=== PATIENT | female | born 1990 | race Caucasian/White ===

== ENCOUNTER 2017-04-29 15:44 | Emergency (ER) | payer MEDICAID, OTHER ==
[2017-04-29 16:51] VITALS: BMI 23.4
[2017-04-29 16:54] VITALS: BP 110/76; PULSE 68; RESP 16; TEMP 98.1; O2SAT 100
--- NOTE | 2017-04-29 18:06 | C.PDOC ---
History Of Present Illness 26 y/o female presents to the ER for evaluation of right ankle pain and swelling which developed on April 18, 2016 after the patient slipped and fell on ice sustaining an injury to the right ankle. Patient states that she has persistent pain since the time of the injury.Patient denies having any deformities and other complaints. 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 Musculoskeletal: Positive for: Other (right ankle pain) Neurological: Negative for: Weakness, Numbness Physical Exam - Physical Exam Appears: Well, Non-toxic, No Acute Distress Skin: Normal Color, Warm, Ecchymosis (TRACE OVER DORSAL ASEPCT RIGHT FOOT) Extremity: Normal ROM (mild discofort to Right ankle flexion/extension due to pain. No neurovascular deficits.), Tenderness (over lateral sapect Right ankle) , Capillary Refill (less than 2sec to Right foot), No Deformity, Swelling ( Right ankle lateral malleolus) Neurological/Psych: Oriented x3, Normal Speech, Normal Motor, Normal Sensation, Normal Reflexes ED Course And Treatment O2 Sat by Pulse Oximetry: 100 - Other Rad Right ankle X-Ray: Interpreted by Me, Viewed By Me Interpretation: (+) distal fibula fracture Progress Note: Podiatry resident was called for consult. Pt was seen by podiatry resident and cast applied. Crutches given. Pt was advised to F/u with Podiatry Clinic on Saturday 12P-3P for further F/U and tx. return ifa co new changes. Pt understand. Stable for discharge now. Orthopedic Time Performed: 17:30 Time Out: Side verified, Site verified, Patient ID confirmed Procedure: Splint Type: Posterior Location: Right, Foot Consent obtained: Verbal Performed by: Mid-level Provider Diagnosis: Fracture Type: Closed Location: Right, Distal Bone: Fibula Disposition Counseled Patient/Family Regarding: Diagnosis, Need For Followup, Rx Given - Disposition Referrals: Edgar Hernandez III, MD [Staff Provider] - [facility] [Outside] Podiatry Clinic [Outside] Disposition Time: 17:50 Condition: STABLE Additional Instructions: NONE-WEIGHT BEARING SPLINT UNTIL RE-EVALUATED BY ORTHOPEDIST/NUT SIFTER TAKE PAIN MEDICATION NEED FOLLOW UP WITH NUT SIFTER/ORTHOPEDIST AT [facility] ON SATURDAY/ 12P-3P FOR RE-EVALUATION. RETURN TO ED IF ANY WORSENING OR NEW CHANGES. Prescriptions: traMADol [Ultram] 50 mg PO TID #7 tab Instructions: Ankle Fracture (ED) Forms: [employer] (I[place]ic) - Clinical Impression Clinical Impression: Ankle fracture
--- NOTE | 2017-04-29 21:51 | CP.PCM.CON ---
History of Present Illness - History of Present Illness History of Present Illness: 25 year old female seen in ED complaining of right ankle pain. Patient states that on 04/18/17 she slipped on ice and twisted her ankle causing severe pain, swelling and bruising. Patient continued to walk on ankle with some pain and continued swelling and bruising until she finally decided to come in today for further evaluation. Patient denies any treatment for the ankle. Denies any further pedal complaints. SHe is AAO x 3 and NAD at time of visit. Denies recent N/V/F/C/CP/SOB/D/posterior calf pain when squeezed Review of Systems - Review of Systems Review of Systems: ROS as per HPI Past Patient History - Past Social History Smoking Status: Never Smoked - CARDIAC Hx Cardiac Disorders: No - PULMONARY Hx Respiratory Disorders: No - NEUROLOGICAL Hx Neurological Disorder: No - HEENT Hx HEENT Problems: No - RENAL Hx Pyelonephritis: Yes - ENDOCRINE/METABOLIC Hx Endocrine Disorders: No - HEMATOLOGICAL/ONCOLOGICAL Hx Blood Disorders: No - INTEGUMENTARY Hx Dermatological Problems: No - MUSCULOSKELETAL/RHEUMATOLOGICAL Hx Musculoskeletal Disorders: No Hx Falls: No - GASTROINTESTINAL Hx Gastrointestinal Disorders: No - GENITOURINARY/GYNECOLOGICAL Hx Genitourinary Disorders: No - PSYCHIATRIC Hx Substance Use: No - SURGICAL HISTORY Hx Surgeries: No - ANESTHESIA Hx Anesthesia: No Meds Home Medications: Home Medication List Medication Instructions Recorded Confirmed Type traMADol [Ultram] 50 mg PO TID #7 tab 04/29/17 Rx Allergies/Adverse Reactions: Allergies Allergy/AdvReac Type Severity Reaction Status Date / Time No Known Allergies Allergy Verified 04/29/17 16:50 Physical Exam - Constitutional Appears: Well, Non-toxic, No Acute Distress - Extremities Exam Additional comments: RLE focused exam: Vasc: DP/PT pulses fully palpable 2/4 b/l. Skin temperature warm to warm from proximal to distal. CFT < 3 seconds to all digits b/l. Mild edema noted to lateral ankle Neuro: Epicritic and protective sensation grossly intact b/l Derm: No open lesions, wound, maceration, xerosis, or abnormal growths noted. Ecchymosis noted to lateral malleolus MSK: POP to lateral malleolus and with dorsiflexion of ankle. No POP to navicular tuberosity, styloid process of fifth metatarsal, achilles tendon or medial malleolus - Neurological Exam Neurological exam: Alert, Oriented x3 - Psychiatric Exam Psychiatric exam: Normal Affect, Normal Mood Results - Vital Signs Recent Vital Signs: Last Vital Signs Temp 98.1 F 04/29/17 16:52 Pulse 68 04/29/17 16:52 Resp 16 04/29/17 16:52 BP 110/76 04/29/17 16:52 Pulse Ox 100 04/29/17 20:16 Assessment & Plan - Assessment and Plan (Free Text) Assessment: 26 year old female with no PMH seen in ED for nondisplaced lateral right ankle fracture Plan: Patient seen and evaluated in ED Plan discussed with attending Dr. Kennedy Foot and ankle xrays reviewed: [place] lateral malleolus fracture of right ankle appreciated, nondisplaced Patients leg dressed with cast Patient to remain NWB and RICE Patient to follow up in clinic on Saturday - Date & Time Date: 04/29/17 Time: 21:52
--- NOTE | 2017-04-30 08:01 | RAD ---
PROCEDURE: Right foot radiographs Right ankle radiographs HISTORY: injury COMPARISON: None available. FINDINGS: BONES: Comminuted oblique fracture of the distal fibula with intra-articular extension. The remainder the visualized osseous structures appear intact. JOINTS: No dislocation. SOFT TISSUES: Soft tissue swelling. No evidence of radiopaque foreign body. OTHER FINDINGS: None. IMPRESSION: Comminuted oblique fracture of the distal fibula with intra-articular extension soft tissue swelling. Study marked for PA review.
== END 2017-04-29 20:55 | disposition home or self-care (01) ==
LOC: C.ER 15:44
DX: S82.61XA Displaced fracture of lateral malleolus of right fibula, initial encounter for closed fracture (principal); W00.0XXA Fall on same level due to ice and snow, initial encounter